=== PATIENT | male | born 1965 | race American Indian/Alaskan Native ===

== ENCOUNTER 2019-10-29 17:31 | Emergency (ER) | payer MEDICARE ==
[2019-10-29] MEDS ORDERED: MORPHINE 4 MG/1 ML INJ IV ONE (18:17)
[2019-10-29] MEDS ORDERED: ONDANSETRON 4 MG/2 ML INJ IV ONE (18:17)
--- NOTE | 2019-10-29 18:20 | Emergency Department Report ---
ED Chest Pain HPI - General Stated Complaint: PAIN IN CHEST Time Seen by Provider: 10/29/19 18:13 Source: patient Mode of arrival: Stretcher Limitations: No Limitations - History of Present Illness Initial Comments: Mr. Toussaint is a 54-year-old male with history of bullous emphysema hypertension who presents with sudden onset of chest pain at the left lower rib cage 1 to 2 hours prior to arrival after coughing. Severe sharp pain. He feels a bulging in the area just below rib cage. No radiation. He also has shortness of breath. 3 years ago he had surgery to remove bullae. No history of pneumothorax. He stopped smoking 4 to 5 years ago. MD Complaint: chest pain -: Sudden Onset: during rest Pain Location: left chest Severity: severe Severity scale (0 -10): 10 Quality: sharp Consistency: constant Worsens With: inspiration, other (Cough) Other Symptoms: other (Shortness of breath) - Related Data Previous Rx's Medication Instructions Recorded Last Taken Type HYDROcodone/APAP 5-325 [[employer] 1 each PO Q6HR PRN #10 tablet 10/29/19 Unknown Rx 5/325] predniSONE [Deltasone] 3 tab PO QDAY 3 Days #9 tab 10/29/19 Unknown Rx Allergies Allergy/AdvReac Type Severity Reaction Status Date / Time No Known Allergies Allergy Unverified 10/29/19 18:14 Heart Score - HEART Score History: Slightly suspicious EKG: Normal Age: < 45 Risk factors: 1-2 risk factors Troponin: < normal limit HEART Score: 1 ED Review of Systems ROS: Stated complaint: PAIN IN CHEST Other details as noted in HPI Comment: All other systems reviewed and negative Constitutional: denies: fever, malaise Respiratory: shortness of breath. denies: cough Cardiovascular: chest pain Gastrointestinal: denies: abdominal pain ED Past Medical Hx - Past Medical History Previous Medical History?: Yes Hx Hypertension: Yes Additional medical history: Bullous emphysema - Surgical History Past Surgical History?: Yes Additional Surgical History: Lung surgery - Family History Family history: hypertension - Social History Smoking Status: Former Smoker - Medications Home Medications: Home Medications Medication Instructions Recorded Confirmed Last Taken Type HYDROcodone/APAP 5-325 [[employer] 1 each PO Q6HR PRN #10 tablet 10/29/19 Unknown Rx 5/325] predniSONE [Deltasone] 3 tab PO QDAY 3 Days #9 tab 10/29/19 Unknown Rx ED Physical Exam - General General appearance: alert, in distress, other (Appears in pain tripod breathing) - Head Head exam: Present: atraumatic, normocephalic - Eye Eye exam: Present: normal appearance - ENT ENT exam: Present: mucous membranes moist - Neck Neck exam: Present: normal inspection, full ROM - Respiratory Respiratory exam: Present: respiratory distress, decreased breath sounds. Absent: wheezes, rales, rhonchi - Cardiovascular Cardiovascular Exam: Present: regular rate, normal rhythm, normal heart sounds. Absent: systolic murmur, diastolic murmur, rubs, gallop - GI/Abdominal GI/Abdominal exam: Present: soft, normal bowel sounds. Absent: distended, tenderness, guarding, rebound - Rectal Rectal exam: Present: deferred - Extremities Exam Extremities exam: Present: normal inspection - Neurological Exam Neurological exam: Present: alert, oriented X3 - Psychiatric Psychiatric exam: Present: normal affect, anxious - Skin Skin exam: Present: warm, dry, intact, normal color. Absent: rash ED Course Vital Signs 10/29/19 10/29/19 18:15 18:45 Temperature 97.8 F Pulse Rate 91 H Respiratory 22 20 Rate Blood Pressure 151/107 O2 Sat by Pulse 97 97 Oximetry ED Medical Decision Making - Lab Data Result diagrams: 10/29/19 18:20 10/29/19 18:20 Laboratory Results - last 24 hr 10/29/19 10/29/19 10/29/19 18:20 18:20 18:20 WBC 9.6 RBC 5.16 H Hgb 15.0 Hct 46.1 H MCV 89 MCH 29 MCHC 32 RDW 16.5 H Plt Count 248 Lymph % (Auto) 14.6 [place] % (Auto) 10.6 H Eos % (Auto) 0.5 Baso % (Auto) 0.6 Lymph # 1.4 [place] # 1.0 H Eos # 0.1 Baso # 0.1 Seg Neutrophils % 73.7 H Seg Neutrophils # 7.1 Sodium 138 Potassium 3.9 Chloride 101.4 Carbon Dioxide 21 L Anion Gap 20 BUN 17 Creatinine 0.9 Estimated GFR > 60 BUN/Creatinine Ratio 19 Glucose 102 H Calcium 9.1 Troponin T < 0.010 10/29/19 20:26 WBC RBC Hgb Hct MCV MCH MCHC RDW Plt Count Lymph % (Auto) [place] % (Auto) Eos % (Auto) Baso % (Auto) Lymph # [place] # Eos # Baso # Seg Neutrophils % Seg Neutrophils # Sodium Potassium Chloride Carbon Dioxide Anion Gap BUN Creatinine Estimated GFR BUN/Creatinine Ratio Glucose Calcium Troponin T < 0.010 - EKG Data 10/29/19 18:43 EKG obtained 1835 Normal sinus rhythm rate 55 bpm normal axis normal intervals positive LVH T waves inverted in anterior leads no ST elevation - Radiology Data Radiology results: report reviewed AP portable chest x-ray: COPD changes in the lungs with scattered calcified granulomata no consolidation or effusion no acute findings according to radiology impression, I also personally reviewed this chest AP portable radiog raph CT angiogram: Bullous emphysematous changes without pneumothorax without pulmonary embolism - Medical Decision Making Mr. Soria is a 54-year-old male with history of bullous emphysema and hypertension who had the sudden onset of lower rib cage pain abdominal wall pain while coughing. Pulmonary embolism, acute myocardial infarction, pneumothorax has been ruled out with extensive work-up in the emergency department. Prescribed prescribed [employer]. Also prescribed prednisone for possible COPD exacerbation causing such severe coughing. He will follow-up with his primary physician. Pain is atypical for ACS. CBC chemistry troponin x2 within normal limits Critical care attestation.: If time is entered above; I have spent that time in minutes in the direct care of this critically ill patient, excluding procedure time. ED Disposition Clinical Impression: Chest wall muscle strain, Abdominal wall strain Disposition: DC-01 TO HOME OR SELFCARE Is pt being admited?: No Does the pt Need Aspirin: No Condition: Stable Instructions: Muscle Strain (ED) Prescriptions: predniSONE [Deltasone] 3 tab PO QDAY 3 Days #9 tab HYDROcodone/APAP 5-325 [[employer] 5/325] 1 each PO Q6HR PRN #10 tablet PRN Reason: Pain Referrals: PRIMARY CARE, [Primary Care Provider] - 3-5 Days
[2019-10-29 18:37] LABS: Basophils # (Auto) 0.1 K/mm3 (0.0-0.1); Basophils % (Auto) 0.6 % (0.0-1.8); Eosinophils # (Auto) 0.1 K/mm3 (0.0-0.4); Eosinophils % (Auto) 0.5 % (0.0-4.3); Hematocrit 46.1 % (35.5-45.6); Lymphocytes # (Auto) 1.4 K/mm3 (1.2-5.4); Lymphocytes % (Auto) 14.6 % (13.4-35.0); Mean Corpuscular HGB Conc 32 % (32-34); Mean Corpuscular Volume 89 fl (84-94); Monocytes % (Auto) 10.6 % (0.0-7.3); Platelet Count 248 K/mm3 (140-440); Red Blood Count 5.16 M/mm3 (3.65-5.03); Red Cell Distribution Width 16.5 % (13.2-15.2)
[2019-10-29 18:54] LABS: BUN/Creatinine Ratio 19; Blood Urea Nitrogen 17 mg/dL (9-20); Calcium 9.1 mg/dL (8.4-10.2); Hemolysis Index 34
--- NOTE | 2019-10-29 18:57 | XRay Report ---
CHEST 1 VIEW INDICATION: left pleuritic chest pain. COMPARISON: None FINDINGS: Support devices: None. Heart: Within normal limits. Lungs/Pleura: COPD changes in the lungs with a few scattered calcified granulomata. No consolidation or effusion. Additional findings: None. IMPRESSION: 1. No acute findings. Signer Name: Adam Neff MD Signed: 10/29/2019 6:53 PM Workstation Name: [id number]
--- NOTE | 2019-10-29 21:49 | Cat Scan Report ---
CTA CHEST WITH IV CONTRAST INDICATION: Severe pleuritic chest pain. TECHNIQUE: Axial CT images were obtained through the chest after injection of 100 mL IV contrast. 3 plane MIP re constructions were produced. All CT scans at this location are performed using CT dose reduction for ALARA by means of automated exposure control. COMPARISON: None available. FINDINGS: PULMONARY ARTERIES: No pulmonary emboli. AORTA AND ARTERIES: No acute abnormality. MEDIASTINUM: No mass, lymphadenopathy or other significant abnormality. The heart is normal in size w ithout a pericardial effusion. The trachea and main bronchi are patent and normal in caliber. LUNGS: Severe emphysema. Calcified granuloma within the right upper lobe. ADDITIONAL FINDINGS: None. UPPER ABDOMEN: No acute findings. BONES: No significant osseous abnormality. IMPRESSION: 1. No CT evidence for pulmonary embolism. 2. Severe emphysema large emphysematous bulla without convincing evidence of pneumothorax.. Signer Name: Peewee Bland MD Signed: 10/29/2019 9:45 PM Workstation Name: [id number]
[2019-10-29 22:19] VITALS: BP 159/98
[2019-10-29] MEDS ORDERED: HYDROcodone/ACETAMINOPHEN 5-325 MG TAB PO ONE (22:23)
[2019-10-29] MEDS ORDERED: IBUPROFEN 800 MG TAB PO ONE (22:23)
== END 2019-10-29 22:38 | disposition home or self-care (01) ==
LOC: ED 17:31
DX: S29.011A Strain of muscle and tendon of front wall of thorax, initial encounter (principal); S39.011A Strain of muscle, fascia and tendon of abdomen, initial encounter; I10 Essential (primary) hypertension; J43.9 Emphysema, unspecified; Z79.899 Other long term (current) drug therapy; Z98.890 Other specified postprocedural states; Z87.891 Personal history of nicotine dependence; X58.XXXA Exposure to other specified factors, initial encounter; Y93.89 Activity, other specified; Y92.89 Other specified places as the place of occurrence of the external cause; Y99.8 Other external cause status
CPT/HCPCS: 36415; 71045; 71275; 80048; 84484; 85025; 93005; 93010; 96374; 96375; 99285; J2270; J2405; Q9967

== ENCOUNTER 2020-02-10 13:32 | Emergency (ER) | payer MEDICARE ==
[2020-02-10 13:51] VITALS: BP 154/98
--- NOTE | 2020-02-10 13:54 | Emergency Department Report ---
Blank Doc - Documentation Documentation: 54-year-old male that presents with penile swelling and redness. Denies any t rauma. This initial assessment/diagnostic orders/clinical plan/treatment(s) is/are subject to change based on patient's health status, clinical progression and re- assessment by fellow clinical providers in the ED. Further treatment and workup at subsequent clinical providers discretion. Patient/guardians urged not to elope from the ED as their condition may be serious if not clinically assessed and managed. Initial orders include: 1- Patient sent to MAIN ED for further evaluation and treatment 2- UA
--- NOTE | 2020-02-10 17:33 | Emergency Department Report ---
ED Male HPI - General Chief complaint: Urogenital-Male Stated complaint: PENIS SWELLING Time Seen by Provider: 02/10/20 13:49 Source: patient Mode of arrival: Ambulatory Limitations: No Limitations - History of Present Illness Initial comments: 54-year-old male presents to ED with complaint of itching and swelling to the penis. Patient states itching began 2 days ago. He denies any penile discharge, pain, redness, dysuria, hematuria. Denies any bumps, sores, or ulcers on the penis. Patient reports unprotected sex only with his . States he has been appyling neosporin. -: days(s) (2) Location: penis Radiation: none Severity: mild Quality: other (itching) Consistency: constant Improves with: none Worsens with: none swelling. denies: discharge, rash, blood in urine, dysuria, fever - Related Data Previous Rx's Medication Instructions Recorded Last Taken Type HYDROcodone/APAP 5-325 [[place] 1 each PO Q6HR PRN #10 tablet 10/29/19 Unknown Rx 5/325] predniSONE [Deltasone] 3 tab PO QDAY 3 Days #9 tab 10/29/19 Unknown Rx Clotrimazole 1% [Lotrimin 1%] 1 applic TP BID #1 tube 02/10/20 Unknown Rx Allergies Allergy/AdvReac Type Severity Reaction Status Date / Time No Known Allergies Allergy Unverified 10/29/19 18:14 ED Review of Systems ROS: Stated complaint: PENIS SWELLING Other details as noted in HPI Comment: All other systems reviewed and negative Constitutional: denies: fever Genitourinary: as per HPI ED Past Medical Hx - Past Medical History Previous Medical History?: Yes Hx Hypertension: Yes Hx Congestive Heart Failure: Yes Hx Asthma: Yes Hx COPD: Yes Additional medical history: Bullous emphysema - Surgical History Past Surgical History?: Yes Additional Surgical History: Lung surgery - Social History Smoking Status: Never Smoker Substance Use Type: None - Medications Home Medications: Home Medications Medication Instructions Recorded Confirmed Last Taken Type HYDROcodone/APAP 5-325 [[place] 1 each PO Q6HR PRN #10 tablet 10/29/19 Unknown Rx 5/325] predniSONE [Deltasone] 3 tab PO QDAY 3 Days #9 tab 10/29/19 Unknown Rx Clotrimazole 1% [Lotrimin 1%] 1 applic TP BID #1 tube 02/10/20 Unknown Rx ED Physical Exam - General Limitations: No Limitations General appearance: alert, in no apparent distress - Head Head exam: Present: atraumatic, normocephalic - Eye Eye exam: Present: normal appearance - ENT ENT exam: Present: mucous membranes moist - Neck Neck exam: Present: normal inspection - Respiratory Respiratory exam: Present: normal lung sounds bilaterally. Absent: respiratory distress - Cardiovascular Cardiovascular Exam: Present: regular rate, normal rhythm - exam: Present: other (mild edema to the head of the penis; no discharge; no erythema; no lesions present; nontender). Absent: testicular tenderness, urethral discharge, scrotal swelling - Extremities Exam Extremities exam: Present: normal inspection - Neurological Exam Neurological exam: Present: alert, oriented X3 - Psychiatric Psychiatric exam: Present: normal affect, normal mood - Skin Skin exam: Present: warm, dry, intact, normal color ED Course Vital Signs 02/10/20 13:49 Temperature 98.4 F Pulse Rate 80 Respiratory 16 Rate Blood Pressure 154/98 O2 Sat by Pulse 100 Oximetry Critical care attestation.: If time is entered above; I have spent that time in minutes in the direct care of this critically ill patient, excluding procedure time. ED Disposition Clinical Impression: Balanitis Disposition: DC-01 TO HOME OR SELFCARE Is pt being admited?: No Condition: Stable Instructions: Ravindraanitis (ED) Prescriptions: Clotrimazole 1% [Lotrimin 1%] 1 applic TP BID #1 tube Referrals: [facility] MD GREGG [Primary Care Provider] - as needed JANELL BARRAZA MD [Staff Physician] - as needed Time of Disposition: 17:38
== END 2020-02-10 17:44 | disposition home or self-care (01) ==
LOC: ED 13:32
DX: N48.1 Balanitis (principal); I11.0 Hypertensive heart disease with heart failure; I50.9 Heart failure, unspecified; J44.1 Chronic obstructive pulmonary disease with (acute) exacerbation; Z79.899 Other long term (current) drug therapy
CPT/HCPCS: 99282